=== PATIENT | male | born 1965 | race Caucasian/White ===

== ENCOUNTER 2018-02-07 01:58 | Emergency (ER) | payer BC ==
[~2018-02-07] VITALS: Ht 160 cm; Wt 111.1 kg
[~2018-02-07 01:58] MED LIST: AMOX500C2 PO
--- OUTSIDE RECORDS SUMMARY | 2018-02-07 02:04 | XMS REPORT ---
Author Author TATIANNA LA Organization [facility] Address [address] [place] [address] Care Team Providers Care Web Ui Software Engineer Name Role Phone TATIANNA LA Unavailable PROBLEMS Type Condition ICD9-CM Code [id number] Code Onset Dates Condition Status SNOMED Code Problem Essential hypertension I10 Active 64258885 Problem Pure hypercholesterolemia E78.00 Active 384588853 ALLERGIES No Known Allergies ENCOUNTERS Encounter Location Date Diagnosis [address] [address] Nov, Pure hypercholesterolemia E78.00 and Essential hypertension I10 [facility] [address] [address] Oct, Essential hypertension I10 [facility] [address] [address] Oct, Abdominal bloating R14.0 and Flatulence/gas pain/belching R14.0 [facility] [address] [place] [address] Oct, Essential hypertension I10 and Pure hypercholesterolemia E78.00 [facility] [address] [address] September, [facility] [address] [place] [address] Jul, Essential hypertension I10 [facility] [address] [address] May, Allergic contact dermatitis, unspecified trigger L23.9 [facility] [address] [address] May, Encounter for physical examination related to employment Z02.1 [facility] [address] [address] Nov, [facility] [address] [place] [id number] [place] [address] Nov, Hyperlipidemia, unspecified hyperlipidemia type E78.5 [facility] [address], [place] [address] Oct, Hyperlipidemia, unspecified hyperlipidemia type E78.5 [facility] [address] [address] Oct, [facility] [id number] [place] [address] Oct, Hyperlipidemia, unspecified hyperlipidemia type E78.5 [facility] [address], [place] [address] Aug, Gastroenteritis K52.9 [facility] [id number] [place] [address] May, Pure hypercholesterolemia E78.00 [facility] [address] [place] [address] May, Hyperlipidemia, unspecified hyperlipidemia type E78.5 [facility] [address], [place] [address] May, Routine adult health maintenance Z00.00 and Hyperlipidemia, unspecified hyperlipidemia type E78.5 [facility] [address], [place] [address] Jun, Hyperlipidemia, unspecified hyperlipidemia type E78.5 [facility] [address], [place] [address] May, Physical exam Z00.00 [facility] [address], [place] [address] May, Physical exam Z00.00 IMMUNIZATIONS No Known Immunizations SOCIAL HISTORY Never Assessed REASON FOR VISIT Blood Pressure-Dian MORRISON PLAN OF CARE Activity Details Follow Up 6 Months Reason: VITAL SIGNS Height 62.5 in 2017-10-29 Weight 159.2 lbs 2017-10-29 Temperature 98.4 degrees Fahrenheit 2017-10-29 Heart Rate 66 bpm 2017-10-29 Respiratory Rate 8 2017-10-29 BMI 28.65 kg/m2 2017-10-29 Blood pressure systolic 138 mmHg 2017-10-29 Blood pressure diastolic 86 mmHg 2017-10-29 MEDICATIONS Medication Instructions Dosage Frequency Start Date End Date Duration Status Pravastatin Sodium 20MG Orally Once a day 1 tablet 24h 90 Active Lisinopril 10 mg Orally Once a day 1 tablet 24h Jul, 30 day(s) Active Lejunior 3 1200 MG Orally Once a day 1 capsule 24h Active RESULTS No Results PROCEDURES No Known procedures INSTRUCTIONS MEDICATIONS ADMINISTERED No Known Medications MEDICAL (GENERAL) HISTORY Type Description Date Medical History hyperlipidemia Surgical History shoulder arthroscopy--Right 2001 Surgical History Eye Surgery
--- OUTSIDE RECORDS SUMMARY | 2018-02-07 02:04 | XMS REPORT ---
Author Author IGNA CRAWLEY Organization [facility] Address [address] [place] [address] Care Team Providers Care Production Checker Name Role Phone CRAWLEYMORGANGINA Unavailable PROBLEMS Type Condition ICD9-CM Code OQW44-RO Code Onset Dates Condition Status SNOMED Code Problem Essential hypertension I10 Active 86329336 Problem Pure hypercholesterolemia E78.00 Active 772348780 ALLERGIES No Known Allergies ENCOUNTERS Encounter Location Date Diagnosis [facility] [address] [address] Nov, Essential hypertension I10 and Pure hypercholesterolemia E78.00 [facility] [address] [address] Oct, Essential hypertension I10 [facility] [address] [address] Oct, Abdominal bloating R14.0 and Flatulence/gas pain/belching R14.0 [facility] [id number] [place] [address] Oct, Essential hypertension I10 and Pure hypercholesterolemia E78.00 [facility] [address] [address] September, [facility] [address] [address] Jul, Essential hypertension I10 [facility] [address] [address] May, Allergic contact dermatitis, unspecified trigger L23.9 [facility] [address] [address] May, Encounter for physical examination related to employment Z02.1 [facility] [address], [place] [address] Nov, [facility] [id number] [place] [address] Nov, Hyperlipidemia, unspecified hyperlipidemia type E78.5 [facility] [address], [place] [address] Oct, Hyperlipidemia, unspecified hyperlipidemia type E78.5 [facility] [address] [address] Oct, [facility] [id number] [place] [address] Oct, Hyperlipidemia, unspecified hyperlipidemia type E78.5 [facility] [address] [place] [address] Aug, Gastroenteritis K52.9 [facility] [id number] [place] [address] May, Pure hypercholesterolemia E78.00 [facility] [id number] [place] [address] May, Hyperlipidemia, unspecified hyperlipidemia type E78.5 [facility] [address], [place] [address] May, Routine adult health maintenance Z00.00 and Hyperlipidemia, unspecified hyperlipidemia type E78.5 [facility] [address], [place] [address] Jun, Hyperlipidemia, unspecified hyperlipidemia type E78.5 [facility] [address], [place] [address] May, Physical exam Z00.00 [facility] [address], [place] [address] May, Physical exam Z00.00 IMMUNIZATIONS No Known Immunizations SOCIAL HISTORY Never Assessed REASON FOR VISIT Abdominal pain Pt c/o abdominal pain, bloating, gas in chest and today nausea all started 2 days ago PRINCE Clay PLAN OF CARE Activity Details Follow Up prn Reason: VITAL SIGNS Height 62.5 in 2017-11-08 Weight 155.6 lbs 2017-11-08 Temperature 98.1 degrees Fahrenheit 2017-11-08 Heart Rate 76 bpm 2017-11-08 Respiratory Rate 18 2017-11-08 BMI 28.00 kg/m2 2017-11-08 Blood pressure systolic 132 mmHg 2017-11-08 Blood pressure diastolic 84 mmHg 2017-11-08 MEDICATIONS Medication Instructions Dosage Frequency Start Date End Date Duration Status [place] 3 1200 MG Orally Once a day 1 capsule 24h Active Pravastatin Sodium 20MG Orally Once a day 1 tablet 24h 90 Active Lisinopril 10 mg Orally Once a day 1 tablet 24h Jul, 30 day(s) Active RESULTS No Results PROCEDURES No Known procedures INSTRUCTIONS MEDICATIONS ADMINISTERED No Known Medications MEDICAL (GENERAL) HISTORY Type Description Date Medical History hyperlipidemia Surgical History shoulder arthroscopy--Right 2001 Surgical History Eye Surgery
--- OUTSIDE RECORDS SUMMARY | 2018-02-07 02:04 | XMS REPORT ---
Author Author TATIANNA LA [facility] Address [address] [place] [address] Care Team Providers Care Vp Publisher Development Name Role Phone TATIANNA LA Unavailable PROBLEMS Type Condition ICD9-CM Code [id number] Code Onset Dates Condition Status SNOMED Code Problem Essential hypertension I10 Active 80001260 Problem Pure hypercholesterolemia E78.00 Active 196903575 ALLERGIES No Information ENCOUNTERS Encounter Location Date Diagnosis [address] [address] Jul, Essential hypertension I10 [facility] [address] [address] May, Allergic contact dermatitis, unspecified trigger L23.9 [facility] [address] [place] [address] May, Encounter for physical examination related to employment Z02.1 [place] [address] [address] Nov, [facility] [address] [address] Nov, Hyperlipidemia, unspecified hyperlipidemia type E78.5 [facility] [id number] [place] [address] Oct, Hyperlipidemia, unspecified hyperlipidemia type E78.5 [facility] [address] [address] Oct, [facility] [address] [address] Oct, Hyperlipidemia, unspecified hyperlipidemia type E78.5 [facility] [address] [place] [address] Aug, Gastroenteritis K52.9 [place] [id number] [place] [address] May, Pure hypercholesterolemia E78.00 [place] [id number] [place] [address] May, Hyperlipidemia, unspecified hyperlipidemia type E78.5 [place] [id number] [place] [address] May, Routine adult health maintenance Z00.00 and Hyperlipidemia, unspecified hyperlipidemia type E78.5 [place] [id number] [place] [address] Jun, Hyperlipidemia, unspecified hyperlipidemia type E78.5 [place] [address] [place] [address] May, Physical exam Z00.00 [place] [address] [place] [address] May, Physical exam Z00.00 IMMUNIZATIONS No Known Immunizations SOCIAL HISTORY Never Assessed REASON FOR VISIT Refill request PLAN OF CARE VITAL SIGNS MEDICATIONS No Known Medications RESULTS No Results PROCEDURES No Known procedures INSTRUCTIONS MEDICATIONS ADMINISTERED No Known Medications MEDICAL (GENERAL) HISTORY Type Description Date Medical History hyperlipidemia Surgical History shoulder arthroscopy--Right 2001 Surgical History Eye Surgery
--- OUTSIDE RECORDS SUMMARY | 2018-02-07 02:04 | XMS REPORT ---
Author Author TATIANNA LA [facility] Address [address] [place] [address] Care Team Providers Care Ancient Art Curator Name Role Phone TATIANNA LA Unavailable PROBLEMS Type Condition ICD9-CM Code UGU39-WS Code Onset Dates Condition Status SNOMED Code Problem Pure hypercholesterolemia E78.00 Active 276407569 Problem Hyperlipidemia, unspecified hyperlipidemia type E78.5 Active 23345690 ALLERGIES Substance Reaction Event Type Date Status N.K.D.A. Unknown Non Drug Allergy May, Unknown SOCIAL HISTORY No smoking Hx information available PLAN OF CARE Activity Details Follow Up prn Reason: VITAL SIGNS Height 62.5 in 2016-06-02 Weight 152.5 lbs 2016-06-02 Temperature 98.3 degrees Fahrenheit 2016-06-02 Heart Rate 80 bpm 2016-06-02 Respiratory Rate 18 2016-06-02 BMI 27.45 kg/m2 2016-06-02 Blood pressure systolic 140 mmHg 2016-06-02 Blood pressure diastolic 82 mmHg 2016-06-02 MEDICATIONS Medication Instructions Dosage Frequency Start Date End Date Duration Status [place] 3 1200 MG Orally Once a day 1 capsule 24h Active RESULTS No Results PROCEDURES Procedure Date Ordered Related Diagnosis Body Site Office Visit, Est Pt., Level 3 Jun 02, 2016 IMMUNIZATIONS No Known Immunizations
--- OUTSIDE RECORDS SUMMARY | 2018-02-07 02:04 | XMS REPORT ---
Author Author YECENIA BRAXTON [facility] Address [address] [place] [address] Care Team Providers Care Gallery Or Museum Technician Name Role Phone YECENIA BRAXTON Unavailable PROBLEMS Type Condition ICD9-CM Code UAB01-CH Code Onset Dates Condition Status SNOMED Code Problem Essential hypertension I10 Active 05026059 Problem Pure hypercholesterolemia E78.00 Active 770791876 ALLERGIES No Known Allergies ENCOUNTERS Encounter Location Date Diagnosis [facility] [address] [address] Oct, Essential hypertension I10 [facility] [address] [address] Oct, Abdominal bloating R14.0 and Flatulence/gas pain/belching R14.0 [facility] [address] [address] 04 Oct, 2017 Essential hypertension I10 and Pure hypercholesterolemia E78.00 [facility] [address] [address] September, [facility] [address] [address] Jul, Essential hypertension I10 [facility] [address] [address] May, Allergic contact dermatitis, unspecified trigger L23.9 [facility] [address] [address] May, Encounter for physical examination related to employment Z02.1 [facility] [address] [address] Nov, [facility] [address] [address] Nov, Hyperlipidemia, unspecified hyperlipidemia type E78.5 [facility] [address] [address] Oct, Hyperlipidemia, unspecified hyperlipidemia type E78.5 [facility] [address] [address] Oct, [facility] [id number] [place] [address] Oct, Hyperlipidemia, unspecified hyperlipidemia type E78.5 [facility] [address] [place] [address] Aug, Gastroenteritis K52.9 [facility] [id number] [place] [address] May, Pure hypercholesterolemia E78.00 [facility] [address] [place] [address]- [address] May, Hyperlipidemia, unspecified hyperlipidemia type E78.5 [facility] [address] [address] May, Routine adult health maintenance Z00.00 and Hyperlipidemia, unspecified hyperlipidemia type E78.5 [facility] [address] [address] Jun, Hyperlipidemia, unspecified hyperlipidemia type E78.5 [facility] [address] [address] May, Physical exam Z00.00 [place] [address] [place] [address] May, Physical exam Z00.00 IMMUNIZATIONS No Known Immunizations SOCIAL HISTORY Never Assessed REASON FOR VISIT welts on arm/welts on rt arm yesterday that itched. Today the welts are on his lt arm and also [facility] Activity Details Follow Up prn Reason: VITAL SIGNS Height 62.5 in 2017-06-23 Weight 158.4 lbs 2017-06-23 Temperature 98.0 degrees Fahrenheit 2017-06-23 Heart Rate 86 bpm 2017-06-23 Respiratory Rate 20 2017-06-23 BMI 28.51 kg/m2 2017-06-23 Blood pressure systolic 160 mmHg 2017-06-23 Blood pressure diastolic 98 mmHg 2017-06-23 MEDICATIONS Medication Instructions Dosage Frequency Start Date End Date Duration Status [place] 3 1200 MG Orally Once a day 1 capsule 24h Active Pravastatin Sodium 20MG Orally Once a day 1 tablet 24h 90 Active RESULTS No Results PROCEDURES No Known procedures INSTRUCTIONS MEDICATIONS ADMINISTERED No Known Medications MEDICAL (GENERAL) HISTORY Type Description Date Medical History hyperlipidemia Surgical History shoulder arthroscopy--Right 2001 Surgical History Eye Surgery
--- OUTSIDE RECORDS SUMMARY | 2018-02-07 02:04 | XMS REPORT ---
Author Author TATIANNA LA Organization [facility] Address [address] [place] [address] Care Team Providers Care Print Buyer Name Role Phone TATIANNA LA Unavailable PROBLEMS Type Condition ICD9-CM Code TLF06-GK Code Onset Dates Condition Status SNOMED Code Problem Essential hypertension I10 Active 56416703 Problem Pure hypercholesterolemia E78.00 Active 339362933 ALLERGIES No Known Allergies ENCOUNTERS Encounter Location Date Diagnosis [address] [address] Nov, Essential hypertension I10 and Pure hypercholesterolemia E78.00 [facility] [address] [address] Oct, Essential hypertension I10 [facility] [address] [address] Oct, Abdominal bloating R14.0 and Flatulence/gas pain/belching R14.0 [facility] [address] [place] [address] Oct, Essential hypertension I10 and Pure hypercholesterolemia E78.00 [facility] [address] [address] September, [facility] [address] [place] [address] Jul, Essential hypertension I10 [facility] [address] [address] May, Allergic contact dermatitis, unspecified trigger L23.9 [facility] [address] [address] May, Encounter for physical examination related to employment Z02.1 [facility] [address], [place] [address] Nov, [facility] [id number] [place] [address] Nov, Hyperlipidemia, unspecified hyperlipidemia type E78.5 [facility] [address], [place] [address] Oct, Hyperlipidemia, unspecified hyperlipidemia type E78.5 [facility] [id number] [place] [address] Oct, [facility] [id number] [place] [address] Oct, Hyperlipidemia, unspecified hyperlipidemia type E78.5 [facility] [address], [place] [address] Aug, Gastroenteritis K52.9 [facility] [id number] [place] [address] May, Pure hypercholesterolemia E78.00 [facility] [address] [place] [address] May, Hyperlipidemia, unspecified hyperlipidemia type E78.5 [facility] [address], [place] [address] May, Routine adult health maintenance Z00.00 and Hyperlipidemia, unspecified hyperlipidemia type E78.5 [facility] [address], [place] [address] Jun, Hyperlipidemia, unspecified hyperlipidemia type E78.5 [facility] [address], [place] [address] May, Physical exam Z00.00 [facility] [address], [place] [address] May, Physical exam Z00.00 IMMUNIZATIONS No Known Immunizations SOCIAL HISTORY Never Assessed REASON FOR VISIT Establish Care, PT has a rash that is getting better and thinks it could possible be due to a new laundry soap-[place] PRINCE, PHQ2, AUDIT C PLAN OF CARE Activity Details Follow Up 3 Months Reason: VITAL SIGNS Height 62.5 in 2017-08-13 Weight 161.7 lbs 2017-08-13 Temperature 98.3 degrees Fahrenheit 2017-08-13 Heart Rate 78 bpm 2017-08-13 Respiratory Rate 20 2017-08-13 BMI 29.10 kg/m2 2017-08-13 Blood pressure systolic 148 mmHg 2017-08-13 Blood pressure diastolic 92 mmHg 2017-08-13 MEDICATIONS Medication Instructions Dosage Frequency Start Date End Date Duration Status Pravastatin Sodium 20MG Orally Once a day 1 tablet 24h 90 Active Lisinopril 10 mg Orally Once a day 1 tablet 24h Jul, 30 day(s) Active [place] 3 1200 MG Orally Once a day 1 capsule 24h Active RESULTS No Results PROCEDURES No Known procedures INSTRUCTIONS MEDICATIONS ADMINISTERED No Known Medications MEDICAL (GENERAL) HISTORY Type Description Date Medical History hyperlipidemia Surgical History shoulder arthroscopy--Right 2001 Surgical History Eye Surgery
--- OUTSIDE RECORDS SUMMARY | 2018-02-07 02:04 | XMS REPORT ---
Author Author TATIANNA LA Organization [facility] Address [address] [place] [address] Care Team Providers Care Tire Fixer Name Role Phone TATIANNA LA Unavailable PROBLEMS Type Condition ICD9-CM Code [id number] Code Onset Dates Condition Status SNOMED Code Problem Essential hypertension I10 Active 37871456 Problem Pure hypercholesterolemia E78.00 Active 311397223 ALLERGIES No Information ENCOUNTERS Encounter Location Date Diagnosis [address] [address] Nov, Essential hypertension I10 and Pure hypercholesterolemia E78.00 [place] [address] [address] Oct, Essential hypertension I10 [facility] [address] [address] Oct, Abdominal bloating R14.0 and Flatulence/gas pain/belching R14.0 [facility] [address] [place] [address] Oct, Essential hypertension I10 and Pure hypercholesterolemia E78.00 [facility] [address] [address] September, [facility] [address] [place] [address] Jul, Essential hypertension I10 [facility] [address] [address] May, Allergic contact dermatitis, unspecified trigger L23.9 [facility] [address] [address] May, Encounter for physical examination related to employment Z02.1 [facility] [address] [address] Nov, [facility] [address] [place] [id number] [place] [address] Nov, Hyperlipidemia, unspecified hyperlipidemia type E78.5 [facility] [address], [place] [address] Oct, Hyperlipidemia, unspecified hyperlipidemia type E78.5 [facility] [address], [place] [address] Oct, [facility] [address] [place] [address] Oct, Hyperlipidemia, unspecified hyperlipidemia type E78.5 [facility] [address], [place] [address] Aug, Gastroenteritis K52.9 [facility] [address] [place] [id number] [place] [address] May, Pure hypercholesterolemia E78.00 [facility] [address], [place] [address] May, Hyperlipidemia, unspecified hyperlipidemia type E78.5 [facility] [address], [place] [address] May, Routine adult health maintenance Z00.00 and Hyperlipidemia, unspecified hyperlipidemia type E78.5 [facility] [address], [place] [address] Jun, Hyperlipidemia, unspecified hyperlipidemia type E78.5 [facility] [address], [place] [address] May, Physical exam Z00.00 [facility] [address], [place] [address] May, Physical exam Z00.00 IMMUNIZATIONS No Known Immunizations SOCIAL HISTORY Never Assessed REASON FOR VISIT Blood pressure check, PT reports he just wanted to get his numbers since he has an appointment coming up. -Govind MORRISON PLAN OF CARE VITAL SIGNS Height 62.5 in 2017-10-11 Blood pressure systolic 130 mmHg 2017-10-11 Blood pressure diastolic 78 mmHg 2017-10-11 MEDICATIONS Medication Instructions Dosage Frequency Start Date End Date Duration Status Pravastatin Sodium 20MG Orally Once a day 1 tablet 24h 90 Active Lisinopril 10 mg Orally Once a day 1 tablet 24h Jul, 30 day(s) Active Melbourne 3 1200 MG Orally Once a day 1 capsule 24h Active RESULTS No Results PROCEDURES No Known procedures INSTRUCTIONS MEDICATIONS ADMINISTERED No Known Medications MEDICAL (GENERAL) HISTORY Type Description Date Medical History hyperlipidemia Surgical History shoulder arthroscopy--Right 2001 Surgical History Eye Surgery
--- OUTSIDE RECORDS SUMMARY | 2018-02-07 02:04 | XMS REPORT ---
Author Author TATIANNA LA Organization [facility] [place] Address [address] [place] [address] Care Team Providers Care Alum Mixer Name Role Phone TATIANNA LA Unavailable PROBLEMS Type Condition ICD9-CM Code [id number] Code Onset Dates Condition Status SNOMED Code Problem Essential hypertension I10 Active 65505731 Problem Pure hypercholesterolemia E78.00 Active 704200666 ALLERGIES No Information ENCOUNTERS Encounter Location Date Diagnosis [address] [address] Nov, Essential hypertension I10 and Pure hypercholesterolemia E78.00 [place] [address] [address] Oct, Essential hypertension I10 [facility] [address] [address] Oct, Abdominal bloating R14.0 and Flatulence/gas pain/belching R14.[address] [address] Oct, Essential hypertension I10 and Pure hypercholesterolemia E78.00 [facility] [place] [address] [address] September, [facility] [place] [address] [place] [address] Jul, Essential hypertension I10 [facility] [address] [address] May, Allergic contact dermatitis, unspecified trigger L23.9 [facility] [place] [address] [address] May, Encounter for physical examination related to employment Z02.1 [facility] [place] [address], [place] [address] Nov, [facility] [place] [address] [place] [id number] [place] [address] Nov, Hyperlipidemia, unspecified hyperlipidemia type E78.5 [facility] [place] [address], [place] [address] Oct, Hyperlipidemia, unspecified hyperlipidemia type E78.5 [facility] [place] [address], [place] [address] Oct, [facility] [place] [address] [place] [id number] [place] [address] Oct, Hyperlipidemia, unspecified hyperlipidemia type E78.5 [facility] [address], [place] [address] Aug, Gastroenteritis K52.9 [facility] [place] [address] [place] [id number] [place] [address] May, Pure hypercholesterolemia E78.00 [facility] [place] [address] [place] [address] May, Hyperlipidemia, unspecified hyperlipidemia type E78.5 [facility] [place] [address], [place] [address] May, Routine adult health maintenance Z00.00 and Hyperlipidemia, unspecified hyperlipidemia type E78.5 [facility] [place] [address], [place] [address] Jun, Hyperlipidemia, unspecified hyperlipidemia type E78.5 [facility] [place] [address], [place] [address] May, Physical exam Z00.00 [facility] [place] [address], [place] [address] May, Physical exam Z00.00 IMMUNIZATIONS No Known Immunizations SOCIAL HISTORY Never Assessed REASON FOR VISIT PLAN OF CARE VITAL SIGNS MEDICATIONS Medication Instructions Dosage Frequency Start Date End Date Duration Status Lisinopril 10 mg Orally Once a day 1 tablet 24h Jul, Active RESULTS No Results PROCEDURES No Known procedures INSTRUCTIONS MEDICATIONS ADMINISTERED No Known Medications MEDICAL (GENERAL) HISTORY Type Description Date Medical History hyperlipidemia Surgical History shoulder arthroscopy--Right 2002 Surgical History Eye Surgery
--- OUTSIDE RECORDS SUMMARY | 2018-02-07 02:04 | XMS REPORT ---
Author Author DANIE YANG Organization [employer] Address Unknown Phone Unavailable Care Team Providers Care Fuel Cell Designer Name Role Phone DANIE YANG CP Unavailable Allergies No Known Allergies Problems Problem Type Condition Code Onset Dates Condition Status Assessment Physical exam Z00.00 Active Medications No Known Medications Procedures Procedure Coding System Code Date COMPLETE CBC W/AUTO DIFF WBC CPT-4 98610 Jun 25, 2015 LIPID PANEL CPT-4 11309 Jun 25, 2015 ASSAY THYROID STIM HORMONE CPT-4 49333 Jun 25, 2015 VENIPUNCT, ROUTINE* CPT-4 39780 Jun 25, 2015 Results Name Result Date Reference Range Unit Abnormality Flag ROUTINE VENIPUNCTURE Summary Purpose [employer] Submission
--- OUTSIDE RECORDS SUMMARY | 2018-02-07 02:04 | XMS REPORT ---
Author Author TATIANNA LA [facility] Address [address] [place] [address] Care Team Providers Care Cancer Program Director Name Role Phone TATIANNA LA Unavailable PROBLEMS Type Condition ICD9-CM Code [id number] Code Onset Dates Condition Status SNOMED Code Problem Essential hypertension I10 Active 92640042 Problem Pure hypercholesterolemia E78.00 Active 407355381 ALLERGIES No Information ENCOUNTERS Encounter Location Date Diagnosis [address] [address] Jul, Essential hypertension I10 [facility] [address] [address] May, Allergic contact dermatitis, unspecified trigger L23.9 [facility] [address] [place] [address] May, Encounter for physical examination related to employment Z02.1 [place] [address] [address] Nov, [facility] [address] [address] Nov, Hyperlipidemia, unspecified hyperlipidemia type E78.5 [facility] [address] [place] [id number] [place] [address] Oct, Hyperlipidemia, unspecified hyperlipidemia type E78.5 [facility] [address] [address] Oct, [facility] [address] [address] Oct, Hyperlipidemia, unspecified hyperlipidemia type E78.5 [facility] [address] [place] [address] Aug, Gastroenteritis K52.9 [place] [address] [place] [address] May, Pure hypercholesterolemia E78.00 [place] [address] [place] [address] May, Hyperlipidemia, unspecified hyperlipidemia type E78.5 [place] [address] [place] [id number] [place] [address] May, Routine adult health maintenance Z00.00 and Hyperlipidemia, unspecified hyperlipidemia type E78.5 [place] [address] [place] [id number] [place] [address] Jun, Hyperlipidemia, unspecified hyperlipidemia type E78.5 [place] [address] [address] May, Physical exam Z00.00 [place] [address] [address] May, Physical exam Z00.00 IMMUNIZATIONS No Known Immunizations SOCIAL HISTORY Never Assessed REASON FOR VISIT Refill request PLAN OF CARE VITAL SIGNS MEDICATIONS Medication Instructions Dosage Frequency Start Date End Date Duration Status Pravastatin Sodium 20 mg Orally Once a day 1 tablet 24h 90 days Active RESULTS No Results PROCEDURES No Known procedures INSTRUCTIONS MEDICATIONS ADMINISTERED No Known Medications MEDICAL (GENERAL) HISTORY Type Description Date Medical History hyperlipidemia Surgical History shoulder arthroscopy--Right 2001 Surgical History Eye Surgery
--- OUTSIDE RECORDS SUMMARY | 2018-02-07 02:04 | XMS REPORT ---
Author Author TATIANNA LA Organization [facility] Address [address] [place] [address] Care Team Providers Care Riding Double Name Role Phone TATIANNA LA Unavailable PROBLEMS Type Condition ICD9-CM Code [id number] Code Onset Dates Condition Status SNOMED Code Problem Essential hypertension I10 Active 47092326 Problem Pure hypercholesterolemia E78.00 Active 807504121 ALLERGIES No Information ENCOUNTERS Encounter Location Date Diagnosis [address] [address] Nov, Pure hypercholesterolemia E78.00 and Essential hypertension I10 [facility] [address] [address] Oct, Essential hypertension I10 [facility] [address] [address] Oct, Abdominal bloating R14.0 and Flatulence/gas pain/belching R14.0 [facility] [address] [place] [address] Oct, Essential hypertension I10 and Pure hypercholesterolemia E78.00 [facility] [address] [address] September, [facility] [address] [place] [address] Jul, Essential hypertension I10 [facility] [address] [address] May, Allergic contact dermatitis, unspecified trigger L23.9 [facility] [address] [address] May, Encounter for physical examination related to employment Z02.1 [facility] [address], [place] [address] Nov, [facility] [address] [place] [id number] [place] [address] Nov, Hyperlipidemia, unspecified hyperlipidemia type E78.5 [facility] [address], [place] [address] Oct, Hyperlipidemia, unspecified hyperlipidemia type E78.5 [facility] [address], [place] [address] Oct, [facility] [address] [place] [id number] [place] [address] Oct, Hyperlipidemia, unspecified hyperlipidemia type E78.5 [facility] [address], [place] [address] Aug, Gastroenteritis K52.9 [facility] [address] [place] [id number] [place] [address] May, Pure hypercholesterolemia E78.00 [facility] [address] [place] [address] May, Hyperlipidemia, unspecified hyperlipidemia type E78.5 [facility] [address], [place] [address] May, Routine adult health maintenance Z00.00 and Hyperlipidemia, unspecified hyperlipidemia type E78.5 [facility] [address], [place] [address] Jun, Hyperlipidemia, unspecified hyperlipidemia type E78.5 [facility] [address], [place] [address] May, Physical exam Z00.00 [facility] [address], [place] [address] May, Physical exam Z00.00 IMMUNIZATIONS No Known Immunizations SOCIAL HISTORY Never Assessed REASON FOR VISIT Lab (walk-in) PLAN OF CARE VITAL SIGNS MEDICATIONS Unknown Medications RESULTS No Results PROCEDURES Procedure Date Ordered Result Body Site LIPID PANEL December 14, 2017 COMPREHEN METABOLIC PANEL December 14, 2017 VENIPUNCT, ROUTINE* December 14, 2017 INSTRUCTIONS MEDICATIONS ADMINISTERED No Known Medications MEDICAL (GENERAL) HISTORY Type Description Date Medical History hyperlipidemia Surgical History shoulder arthroscopy--Right 2002 Surgical History Eye Surgery
--- OUTSIDE RECORDS SUMMARY | 2018-02-07 02:04 | XMS REPORT ---
Author Author TATIANNA LA [facility] Address [address] [place] [address] Care Team Providers Care Railroad Yard Worker Name Role Phone TATIANNA LA Unavailable PROBLEMS Type Condition ICD9-CM Code [id number] Code Onset Dates Condition Status SNOMED Code Problem Pure hypercholesterolemia E78.00 Active 189532092 Problem Hyperlipidemia, unspecified hyperlipidemia type E78.5 Active 72692082 ALLERGIES Unknown Allergies SOCIAL HISTORY No smoking Hx information available PLAN OF CARE VITAL SIGNS MEDICATIONS Medication Instructions Dosage Frequency Start Date End Date Duration Status Pravastatin Sodium 20 mg Orally Once a day 1 tablet 24h May, 30 day(s) Active RESULTS No Results PROCEDURES No Known procedures IMMUNIZATIONS No Known Immunizations
--- OUTSIDE RECORDS SUMMARY | 2018-02-07 02:05 | XMS REPORT ---
Author Author TATIANNA LA [facility] Address [address] [place] [address] Care Team Providers Care Associate Professor Of Biblical Studies Name Role Phone TATIANNA LA Unavailable PROBLEMS Type Condition ICD9-CM Code [id number] Code Onset Dates Condition Status SNOMED Code Problem Pure hypercholesterolemia E78.00 Active 665646181 Problem Hyperlipidemia, unspecified hyperlipidemia type E78.5 Active 29720107 ALLERGIES No Information ENCOUNTERS Encounter Location Date Diagnosis [facility] [address] [address] Jul, [facility] [address] [address] May, Allergic contact dermatitis, unspecified trigger L23.9 [facility] [address] [address] May, Encounter for physical examination related to employment Z02.1 [facility] [address] [address] Nov, [facility] [address] [address] Nov, Hyperlipidemia, unspecified hyperlipidemia type E78.5 [facility] [address] [place] [id number] [place] [address] Oct, Hyperlipidemia, unspecified hyperlipidemia type E78.5 [facility] [address] [address] Oct, [facility] [address] [address] Oct, Hyperlipidemia, unspecified hyperlipidemia type E78.5 [facility] [address] [place] [address] Aug, Gastroenteritis K52.9 [place] [address] [place] [address] May, Pure hypercholesterolemia E78.00 [place] [address] [place] [address] May, Hyperlipidemia, unspecified hyperlipidemia type E78.5 [place] [address] [place] [id number] [place] [address] May, Routine adult health maintenance Z00.00 and Hyperlipidemia, unspecified hyperlipidemia type E78.5 [place] [address] [place] [id number] [place] [address] Jun, Hyperlipidemia, unspecified hyperlipidemia type E78.5 [place] [address] [address] May, Physical exam Z00.00 [place] [address] [place] [id number] [place] [address] May, Physical exam Z00.00 IMMUNIZATIONS No Known Immunizations SOCIAL HISTORY Never Assessed REASON FOR VISIT Lab (walk-in) PLAN OF CARE VITAL SIGNS MEDICATIONS Unknown Medications RESULTS Name Result Date Reference Range LIPID PANEL 2016 Cholesterol, Total 158 100-199 Triglycerides 100 0-149 HDL Cholesterol 43 >39 VLDL Cholesterol Marco Antonio 20 5-40 LDL Cholesterol Calc 95 0-99 Comment: PROCEDURES Procedure Date Ordered Result Body Site LIPID PANEL 2016 VENIPKLEVER, ROUTINE* 2016 INSTRUCTIONS MEDICATIONS ADMINISTERED No Known Medications MEDICAL (GENERAL) HISTORY Type Description Date Medical History hyperlipidemia Surgical History shoulder arthroscopy--Right 2001 Surgical History Eye Surgery
--- OUTSIDE RECORDS SUMMARY | 2018-02-07 02:05 | XMS REPORT ---
Author Author DANIE YANG Organization [employer] Address Unknown Phone Unavailable Care Team Providers Care Heat Treat Furnace Operator Name Role Phone DANIE YANG CP Unavailable Allergies No Known Allergies Problems Problem Type Condition Code Onset Dates Condition Status Assessment Hyperlipidemia, unspecified hyperlipidemia type E78.5 Active Problem Hyperlipidemia, unspecified hyperlipidemia type E78.5 Active Medications Medication Code System Code Instructions Start Date End Date Status Dosage Fish Oil [facility] [address]-57 1000 MG Orally 2 times a day Jun 28, 2015 September 26, 2015 1 capsule Results No Known Results Summary Purpose [employer] Submission
--- OUTSIDE RECORDS SUMMARY | 2018-02-07 02:05 | XMS REPORT | Continuity of Care Document ---
Author Author [facility] Organization [facility] Address Unknown Phone Unavailable Allergies There is no data. Medications There is no data. Problems Date Dx Coded Attending Type Code Diagnosis Diagnosed By 09/02/2013 JIHAN HANNA, VINNY Kothari Ot 401.9 HYPERTENSION NOS 09/02/2013 VINNY BOBO MD Ot 521.00 UNSPEC DENTAL CARIES 09/02/2013 VINNY BOBO MD Ot 525.9 DENTAL DISORDER NOS Procedures There is no data. Results Test Result Range Lipid Panel - 06/23/16 10:32 Cholesterol, Total 224 mg/dL 100-199 Triglycerides 135 mg/dL 0-149 HDL Cholesterol 37 mg/dL >39 VLDL Cholesterol Marco Antonio 27 mg/dL 5-40 LDL Cholesterol Calc 160 mg/dL 0-99 Lipid Panel - 11/02/16 12:40 Cholesterol, Total 158 mg/dL 100-199 Triglycerides 100 mg/dL 0-149 HDL Cholesterol 43 mg/dL >39 VLDL Cholesterol Marco Antonio 20 mg/dL 5-40 LDL Cholesterol Calc 95 mg/dL 0-99 LIPID PANEL - 12/14/17 11:24 CHOLESTEROL, TOTAL 194 mg/dL <200 HDL CHOLESTEROL 36 mg/dL >40 TRIGLYCERIDES 173 mg/dL <150 LDL-CHOLESTEROL 129 mg/dL (calc) NRG CHOL/HDLC RATIO 5.4 (calc) <5.0 NON HDL CHOLESTEROL 158 mg/dL (calc) <130 CMP - 12/14/17 11:24 GLUCOSE 127 mg/dL 65-99 UREA NITROGEN (BUN) 14 mg/dL 7-25 CREATININE 0.89 mg/dL 0.70-1.33 eGFR NON-AFR. MICRONESIAN 100 mL/min/1.73m2 > OR=60 eGFR 116 mL/min/1.73m2 > OR=60 BUN/CREATININE RATIO NOT APPLICABLE (calc) 6-22 SODIUM 138 mmol/L 135-146 POTASSIUM 4.1 mmol/L 3.5-5.3 CHLORIDE 106 mmol/L 98-110 CARBON DIOXIDE 26 mmol/L 20-31 CALCIUM 8.9 mg/dL 8.6-10.3 PROTEIN, TOTAL 6.3 g/dL 6.1-8.1 ALBUMIN 4.3 g/dL 3.6-5.1 GLOBULIN 2.0 g/dL (calc) 1.9-3.7 ALBUMIN/GLOBULIN RATIO 2.2 (calc) 1.0-2.5 BILIRUBIN, TOTAL 0.7 mg/dL 0.2-1.2 ALKALINE PHOSPHATASE 49 U/L 40-115 AST 21 U/L 10-35 ALT 26 U/L 9-46 Encounters ACCT No. Visit Date/Time Discharge Status Pt. Type Provider Facility Loc./Unit Complaint [id number] 09/02/2013 04:39:00 09/02/2013 05:14:00 DIS Emergency JIHAN HANNA, VINNY Kothari [facility] ER DENTAL PAIN [id number] 02/07/2018 02:00:00 ACT Emergency FELIBERTO SAMANTHA SEALS [facility] ER RASH [id number] 06/24/2016 08:36:00 Document Registration [id number] 11/03/2016 08:06:00 Document Registration [id number] 12/14/2017 12:00:00 12/14/2017 23:59:59 [facility] Outpatient ABHINAV HANNA, TATIANNA FRANKLINCris [facility] [id number] 12/14/2017 12:00:00 Document Registration
--- OUTSIDE RECORDS SUMMARY | 2018-02-07 02:05 | XMS REPORT ---
Author Author TATIANNA LA [facility] [address] Address [address] [place] [address] Care Team Providers Care Woods Laborer Name Role Phone TATIANNA LA Unavailable PROBLEMS Type Condition ICD9-CM Code [id number] Code Onset Dates Condition Status SNOMED Code Problem Essential hypertension I10 Active 00267289 Problem Pure hypercholesterolemia E78.00 Active 267327695 ALLERGIES No Known Allergies ENCOUNTERS Encounter Location Date Diagnosis [facility] [address] [address] Oct, Essential hypertension I10 [facility] [address] [address] Oct, Abdominal bloating R14.0 and Flatulence/gas pain/belching R14.0 [facility] [address] [address] Oct, Essential hypertension I10 and Pure hypercholesterolemia E78.00 [facility] [address] [address] September, [facility] [address] [address] Jul, Essential hypertension I10 [facility] [address] [address] May, Allergic contact dermatitis, unspecified trigger L23.9 [facility] [address] [address] May, Encounter for physical examination related to employment Z02.1 [facility] [address] [address] Nov, [facility] [id number] [address] Nov, Hyperlipidemia, unspecified hyperlipidemia type E78.5 [facility] [id number] [place] [address] Oct, Hyperlipidemia, unspecified hyperlipidemia type E78.5 [facility] [address] [address] Oct, [facility] [id number] [place] [address] Oct, Hyperlipidemia, unspecified hyperlipidemia type E78.5 [facility] [id number] [place] [address] Aug, Gastroenteritis K52.9 [facility] [id number] [place] [address] May, Pure hypercholesterolemia E78.00 [facility] [id number] [place] [address] May, Hyperlipidemia, unspecified hyperlipidemia type E78.5 [facility] [id number] [place] [address] May, Routine adult health maintenance Z00.00 and Hyperlipidemia, unspecified hyperlipidemia type E78.5 [facility] [address], [place] [address] Jun, Hyperlipidemia, unspecified hyperlipidemia type E78.5 [facility] [id number] [place] [address] May, Physical exam Z00.00 [facility] [id number] [place] [address] May, Physical exam Z00.00 IMMUNIZATIONS No Known Immunizations SOCIAL HISTORY Never Assessed REASON FOR VISIT Physical---DBennettRN PLAN OF CARE Activity Details Follow Up prn Reason: VITAL SIGNS Height 62.5 in 2017-06-12 Weight 157 lbs 2017-06-12 Temperature 98.0 degrees Fahrenheit 2017-06-12 Heart Rate 80 bpm 2017-06-12 Respiratory Rate 20 2017-06-12 BMI 28.25 kg/m2 2017-06-12 Blood pressure systolic 130 mmHg 2017-06-12 Blood pressure diastolic 70 mmHg 2017-06-12 MEDICATIONS Medication Instructions Dosage Frequency Start Date End Date Duration Status Pravastatin Sodium 20MG Orally Once a day 1 tablet 24h 90 Active [place] 3 1200 MG Orally Once a day 1 capsule 24h Active RESULTS No Results PROCEDURES No Known procedures INSTRUCTIONS MEDICATIONS ADMINISTERED No Known Medications MEDICAL (GENERAL) HISTORY Type Description Date Medical History hyperlipidemia Surgical History shoulder arthroscopy--Right 2001 Surgical History Eye Surgery
--- OUTSIDE RECORDS SUMMARY | 2018-02-07 02:05 | XMS REPORT ---
Author Author TATIANNA LA [facility] Address [address] [place] [address] Care Team Providers Care Portfolio Analyst Name Role Phone TATIANNA LA Unavailable PROBLEMS Type Condition ICD9-CM Code [id number] Code Onset Dates Condition Status SNOMED Code Problem Pure hypercholesterolemia E78.00 Active 522395150 Problem Hyperlipidemia, unspecified hyperlipidemia type E78.5 Active 70936009 ALLERGIES Unknown Allergies SOCIAL HISTORY No smoking Hx information available PLAN OF CARE VITAL SIGNS MEDICATIONS Unknown Medications RESULTS Name Result Date Reference Range LIPID PANEL 2016-06-23 Cholesterol, Total 224 100-199 Triglycerides 135 0-149 HDL Cholesterol 37 >39 VLDL Cholesterol Marco Antonio 27 5-40 LDL Cholesterol Calc 160 0-99 Comment: PROCEDURES Procedure Date Ordered Related Diagnosis Body Site LIPID PANEL Jun 23, 2016 VENIPUNCT, ROUTINE* Jun 23, 2016 IMMUNIZATIONS No Known Immunizations
--- OUTSIDE RECORDS SUMMARY | 2018-02-07 02:05 | XMS REPORT ---
Author Author TATIANNA LA [facility] Address [address] [place] [address] Care Team Providers Care Morning Show Newscast Producer Name Role Phone TATIANNA LA Unavailable PROBLEMS Type Condition ICD9-CM Code [id number] Code Onset Dates Condition Status SNOMED Code Problem Pure hypercholesterolemia E78.00 Active 488883705 Problem Hyperlipidemia, unspecified hyperlipidemia type E78.5 Active 65413766 ALLERGIES No Information ENCOUNTERS Encounter Location Date Diagnosis [facility] [address] [address] Jul, [facility] [address] [address] May, Allergic contact dermatitis, unspecified trigger L23.9 [facility] [address] [address] May, Encounter for physical examination related to employment Z02.1 [facility] [address] [address] Nov, [facility] [address] [address] Nov, Hyperlipidemia, unspecified hyperlipidemia type E78.5 [facility] [id number] [place] [address] Oct, Hyperlipidemia, unspecified hyperlipidemia type E78.5 [facility] [address] [address] Oct, [facility] [address] [address] Oct, Hyperlipidemia, unspecified hyperlipidemia type E78.5 [facility] [address] [place] [address] Aug, Gastroenteritis K52.9 [facility] [id number] [place] [address] May, Pure hypercholesterolemia E78.00 [facility] [id number] [place] [address] May, Hyperlipidemia, unspecified hyperlipidemia type E78.5 [facility] [id number] [place] [address] May, Routine adult health maintenance Z00.00 and Hyperlipidemia, unspecified hyperlipidemia type E78.5 [facility] [id number] [place] [address] Jun, Hyperlipidemia, unspecified hyperlipidemia type E78.5 [facility] [address] [address] May, Physical exam Z00.00 [place] [address] [place] [address] May, Physical exam Z00.00 IMMUNIZATIONS No Known Immunizations SOCIAL HISTORY Never Assessed REASON FOR VISIT Medication Refill PLAN OF CARE VITAL SIGNS MEDICATIONS Medication Instructions Dosage Frequency Start Date End Date Duration Status Pravastatin Sodium 20 mg Orally Once a day 1 tablet 24h 30 Active RESULTS No Results PROCEDURES No Known procedures INSTRUCTIONS MEDICATIONS ADMINISTERED No Known Medications MEDICAL (GENERAL) HISTORY Type Description Date Medical History hyperlipidemia Surgical History shoulder arthroscopy--Right 2001 Surgical History Eye Surgery
--- NOTE | 2018-02-07 02:38 | ED General ---
General Stated Complaint: RASH Source of Information: Patient (SOMEWHAT VAGUE HISTORIAN) History of Present Illness Date Seen by Provider: Feb 07, 2018 Time Seen by Provider: 02:10 Initial Comments PT ARRIVES VIA POV FROM HOME PT STATES "I FEEL A LITTLE WEIRD" PT STATES "WHEN I LAID DOWN, FELT LIKE I WAS HAVING AN ANXIETY ATTACK, GOT UP AND WALK AROUND AND I'M FINE, THEN I LAY DOWN AND IT STARTS ALL OVER AGAIN" PT STATES "MY ALLERGIES REALLY KICKED IN THIS MORNING" STATES HE TOOK LORATIDINE 10 MG THIS MORNING, THEN CETIRIZINE 10 MG AT 1700, THEN TOOK 200 MG DIPHENHYDRAMINE AT 2130 STATES HE WENT TO BED AT 2130 AND FELT FINE STATES "WOKE UP AT 1 AND MY THROAT WAS DRY AND MY MOUTH WAS DRY" APPARENTLY OTHER SYMPTOMS BEGAN SOMETIME AFTER HE WOKE UP PT IS NOT HAVING ANY SYMPTOMS NOW NO FEVER NO COUGH NO CHEST PAIN NO NAUSEA/VOMITING NO SWELLING IN LEGS/FEET OR PAIN IN CALVES NO PALPITATIONS NO SYNCOPE NO DIZZINESS Allergies and Home Medications Allergies Coded Allergies: No Known Drug Allergies (Unverified , 09/02/13) Home Medications Amoxicillin 500 Mg Capsule, 2 EACH PO BID Prescribed by: VINNY LOPEZ on 09/02/13 0508 Patient Home Medication List Home Medication List Reviewed: Yes Review of Systems Review of Systems Constitutional: see HPI EENTM: no symptoms reported Respiratory: see HPI Cardiovascular: no symptoms reported; No chest pain, No edema, No palpitations , No syncope, No vascular heart diseas Gastrointestinal: no symptoms reported Genitourinary: no symptoms reported Musculoskeletal: no symptoms reported Skin: no symptoms reported Psychiatric/Neurological: See HPI, Anxiety Hematologic/Lymphatic: No Symptoms Reported Immunological/Allergic: no symptoms reported Past Hiefspz-Xghdtg-Hgbdkr Hx Patient Social History Alcohol Use: Regular Use ("COUPLE OF DRINKS A DAY" EVERY DAY) Recreational Drug Use: Yes (THC IN HIGH SCHOOL) Smoking Status: Former Smoker (<1/2 PPD, QUIT 6-7 YEARS AGO, PER PT ON 02/07/18 ) Type Used: Cigarettes Recent Foreign Travel: No Contact w/Someone Who Travel: No Seasonal Allergies Seasonal Allergies: Yes Past Medical History Surgeries: Yes (LEFT EYE REMOVED WITH PROSTHESIS) Eye Surgery Respiratory: No Cardiac: Yes High Cholesterol, Hypertension Neurological: No Genitourinary: No Gastrointestinal: No Musculoskeletal: No Endocrine: No 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 oz. 63.993064fl; BMI Method: General Appearance: No Apparent Distress, WD/WN HEENT: Normal ENT Inspection, Other (LEFT PROSTHETIC EYE) Neck: Full Range of Motion, Normal Inspection, Non Tender, Supple; No Carotid Bruit, No JVD Respiratory: Normal Breath Sounds, No Accessory Muscle Use, No Respiratory Distress Cardiovascular: Regular Rate, Rhythm, No Edema, No JVD, No Murmur, Normal Peripheral Pulses Gastrointestinal: Normal Bowel Sounds, No Organomegaly, No Pulsatile Mass, Non Tender, Soft Back: Normal Inspection Extremity: Normal Capillary Refill, Normal Inspection, Normal Range of Motion, Non Tender, No Calf Tenderness, No Pedal Edema Neurologic/Psychiatric: Alert, Oriented x3, No Motor/Sensory Deficits, Normal Mood/Affect, mortgage loan reviewer II-XII Norm as Tested Skin: Normal Color, Warm/Dry Progress/Results/Core Measures Suspected Sepsis SIRS Temperature: Pulse: Respiratory Rate: Laboratory Tests 02/07/18 02:34: White Blood Count 11.1H Blood Pressure / Mean: Laboratory Tests 02/07/18 02:34: Creatinine 0.86, INR Comment 0.9, Platelet Count 229, Total Bilirubin 0.6 Results/Orders Lab Results Laboratory Tests Test 02/07/18 02:30 02/07/18 02:34 Range/Units Urine Color YELLOW Urine Clarity CLEAR Urine pH 6 5-9 Urine Specific [place] 1.015 L 1.016-1.022 Urine Protein 1+ H NEGATIVE Urine Glucose (UA) NEGATIVE NEGATIVE Urine Ketones NEGATIVE NEGATIVE Urine Nitrite NEGATIVE NEGATIVE Urine Bilirubin NEGATIVE NEGATIVE Urine Urobilinogen NORMAL NORMAL MG/DL Urine Leukocyte Esterase NEGATIVE NEGATIVE Urine RBC (Auto) NEGATIVE NEGATIVE Urine RBC NONE /HPF Urine WBC NONE /HPF Urine Squamous Epithelial Cells RARE /HPF Urine Crystals NONE /LPF Urine Bacteria NEGATIVE /HPF Urine Casts NONE /LPF Urine Mucus SMALL H /LPF Urine Culture Indicated NO Urine Opiates Screen NEGATIVE NEGATIVE Urine Oxycodone Screen NEGATIVE NEGATIVE Urine Methadone Screen NEGATIVE NEGATIVE Urine Propoxyphene Screen NEGATIVE NEGATIVE Urine Barbiturates Screen NEGATIVE NEGATIVE Ur Tricyclic Antidepressants Screen NEGATIVE NEGATIVE Urine Phencyclidine Screen NEGATIVE NEGATIVE Urine Amphetamines Screen NEGATIVE NEGATIVE Urine Methamphetamines Screen NEGATIVE NEGATIVE Urine Benzodiazepines Screen NEGATIVE NEGATIVE Urine Cocaine Screen NEGATIVE NEGATIVE Urine Cannabinoids Screen NEGATIVE NEGATIVE White Blood Count 11.1 H 4.3-11.0 10^3/uL Red Blood Count 4.86 4.35-5.85 10^6/uL Hemoglobin 15.4 13.3-17.7 G/DL Hematocrit 44 40-54 % Mean Corpuscular Volume 90 80-99 FL Mean Corpuscular Hemoglobin 32 25-34 PG Mean Corpuscular Hemoglobin Concent 35 32-36 G/DL Red Cell Distribution Width 12.3 10.0-14.5 % Platelet Count 229 130-400 10^3/uL Mean Platelet Volume 10.2 7.4-10.4 FL Neutrophils (%) (Auto) 75 42-75 % Lymphocytes (%) (Auto) 14 12-44 % Monocytes (%) (Auto) 9 0-12 % Eosinophils (%) (Auto) 3 0-10 % Basophils (%) (Auto) 0 0-10 % Neutrophils # (Auto) 8.3 H 1.8-7.8 X 10^3 Lymphocytes # (Auto) 1.5 1.0-4.0 X 10^3 Monocytes # (Auto) 1.0 0.0-1.0 X 10^3 Eosinophils # (Auto) 0.3 0.0-0.3 10^3/uL Basophils # (Auto) 0.0 0.0-0.1 10^3/uL Prothrombin Time 12.2 12.2-14.7 SEC INR Comment 0.9 0.8-1.4 Activated Partial Thromboplast Time 27 24-35 SEC Sodium Level 137 135-145 MMOL/L Potassium Level 3.7 3.6-5.0 MMOL/L Chloride Level 103 98-107 MMOL/L Carbon Dioxide Level 19 L 21-32 MMOL/L Anion Gap 15 H 5-14 MMOL/L Blood Urea Nitrogen 15 7-18 MG/DL Creatinine 0.86 0.60-1.30 MG/DL Estimat Glomerular Filtration Rate > 60 BUN/Creatinine Ratio 17 Glucose Level 91 70-105 MG/DL Calcium Level 9.2 8.5-10.1 MG/DL Corrected Calcium 8.8 8.5-10.1 MG/DL Magnesium Level 2.6 H 1.8-2.4 MG/DL Total Bilirubin 0.6 0.1-1.0 MG/DL Aspartate Amino Transf (AST/SGOT) 25 5-34 U/L Alanine Aminotransferase (ALT/SGPT) 35 0-55 U/L Alkaline Phosphatase 56 40-136 U/L Troponin I < 0.30 <0.30 NG/ML Total Protein 6.8 6.4-8.2 GM/DL Albumin 4.5 3.2-4.5 GM/DL TSH [place] Testing 2.14 0.35-4.94 UIU/ML Serum Alcohol < 10 <10 MG/DL My Orders Orders - SAMANTHA DAO DO Saline Lock/Iv-Start (02/07/18 02:26) Ekg Tracing (02/07/18 02:26) Monitor-Rhythm Ecg Trace Only (02/07/18 02:26) Alcohol (02/07/18 02:26) Cbc With Automated Diff (02/07/18 02:26) Comprehensive Metabolic Panel (02/07/18 02:26) Drug Screen Stat (Urine) (02/07/18 02:26) Magnesium (02/07/18 02:26) Protime With Inr (02/07/18 02:26) Partial Thromboplastin Time (02/07/18 02:26) Thyroid Analyzer (02/07/18 02:26) Troponin I (02/07/18 02:26) Ua Culture If Indicated (02/07/18 02:26) Chest Pa/Lat (2 View) (02/07/18 02:26) Rx-Ondansetron Po (Rx-Zofran Po) (02/07/18 04:11) Acetaminophen Tablet (Tylenol Tablet) (02/07/18 04:15) Vital Signs/I&O 02/07/18 02/07/18 02:13 04:51 Temp 97.2 97.9 Pulse 83 77 Resp 21 26 B/P (MAP) 150/96 (114) 139/77 Pulse Ox 97 O2 Delivery Room Air Room Air Capillary Refill : Progress Note : Progress Note ASYMPTOMATIC DURING ER STAY PT ABLE TO LAY FLAT WITHOUT DIFFICULTY NO DYSPNEA OR LOW O2 SATS AT ANY TIME DURING ER STAY ECG Initial ECG Impression Date: Feb 07, 2018 Initial ECG Impression Time: 03:10 Initial ECG Rate: 71 Initial ECG Rhythm: Normal Sinus Initial ECG Impression: Normal Initial ECG Comparisson: No Previous ECG Available Diagnostic Imaging Comments CXR--NO ACUTE PROCESS, PENDING RADIOLOGIST REVIEW Reviewed: Reviewed by Me Departure Impression Primary Impression: Anxiety Additional Impression: EXCESSIVE USE OF ANTIHISTAMINES Disposition: 01 HOME, SELF-CARE Condition: Improved Departure-Patient Inst. Referrals: TATIANNA LA MD (PCP) Primary Care Physician [facility] (Family) Primary Care Physician Patient Instructions: Adverse Drug Reactions, Adult (DC), Anxiety, Adult (DC) Add. Discharge Instructions: TAKE ONLY LORATADINE 10 MG IN MORNING FOR ALLERGIES, AND NO OTHER ANTIHISTAMINES NO DECONGESTANTS USE FLONSE OR NASACORT NASAL SPRAY DAILY FOR ALLERGIES LOTS OF CLEAR LIQUIDS FOLLOW UP WITH YOUR DR TOMORROW IF NO BETTER RETURN TO ER IF WORSE SAMANTHA DAO DO Feb 07, 2018 02:38
[2018-02-07 03:31] LABS: BASOPHILS % (AUTO) 0 % (0-10); EOSINOPHILS # (AUTO) 0.3 10^3/uL (0.0-0.3); EOSINOPHILS % (AUTO) 3 % (0-10); HEMATOCRIT 44 % (40-54); HEMOGLOBIN 15.4 G/DL (13.3-17.7); LYMPHOCYTES # (AUTO) 1.5 X 10^3 (1.0-4.0); LYMPHOCYTES % (AUTO) 14 % (12-44); MEAN CORPUSCULAR HEMOGLOBIN 32 PG (25-34); MEAN CORPUSCULAR HGB CONC 35 G/DL (32-36); MEAN CORPUSCULAR VOLUME 90 FL (80-99); MEAN PLATELET VOLUME 10.2 FL (7.4-10.4); MONOCYTES % (AUTO) 9 % (0-12); NEUTROPHILS # (AUTO) 8.3 X 10^3 (1.8-7.8); NEUTROPHILS % (AUTO) 75 % (42-75); PLATELET COUNT 229 10^3/uL (130-400); RED BLOOD COUNT 4.86 10^6/uL (4.35-5.85); RED CELL DISTRIBUTION WIDTH 12.3 % (10.0-14.5); WHITE BLOOD COUNT 11.1 10^3/uL (4.3-11.0)
[2018-02-07 03:34] LABS: BILIRUBIN,URINE NEGATIVE (NEGATIVE); CLARITY,URINE CLEAR; COLOR,URINE YELLOW; GLUCOSE, URINE (UA) NEGATIVE (NEGATIVE); KETONES,URINE NEGATIVE (NEGATIVE); LEUKOCYTE ESTERASE ,URINE NEGATIVE (NEGATIVE); NITRITE,URINE NEGATIVE (NEGATIVE); PH,URINE 6 (5-9); PROTEIN,URINE 1+ (NEGATIVE); UROBILINOGEN,URINE NORMAL (NORMAL)
[2018-02-07 03:51] LABS: BACTERIA,URINE NEGATIVE /HPF; SQUAMOUS EPITHELIAL CELL,UR RARE /HPF
[2018-02-07 03:51] LABS: INR 0.9 (0.8-1.4); PROTHROMBIN TIME PATIENT 12.2 SEC (12.2-14.7)
[2018-02-07 04:02] LABS: ALANINE AMINOTRANSFERASE 35 U/L (0-55); ALBUMIN 4.5 GM/DL (3.2-4.5); ALKALINE PHOSPHATASE 56 U/L (40-136); BILIRUBIN,TOTAL 0.6 MG/DL (0.1-1.0); BUN/CREATININE RATIO 17; CALCIUM 9.2 MG/DL (8.5-10.1); CARBON DIOXIDE 19 MMOL/L (21-32); CHLORIDE 103 MMOL/L (98-107); CREATININE SERUM 0.86 MG/DL (0.60-1.30); GFR ESTIMATED > 60; GLUCOSE 91 MG/DL (70-105); MAGNESIUM 2.6 MG/DL (1.8-2.4); POTASSIUM 3.7 MMOL/L (3.6-5.0); SODIUM 137 MMOL/L (135-145); TOTAL PROTEIN 6.8 GM/DL (6.4-8.2)
[2018-02-07 04:10] LABS: AMPHETAMINE SCREEN, URINE NEGATIVE (NEGATIVE); BARBITURATE SCREEN URINE NEGATIVE (NEGATIVE); BENZODIAZEPINES SCREEN URINE NEGATIVE (NEGATIVE); CANNABINOID SCREEN, URINE NEGATIVE (NEGATIVE); COCAINE SCREEN URINE NEGATIVE (NEGATIVE); METHADONE STAT NEGATIVE (NEGATIVE); METHAMPHETAMINE SCREEN URINE S NEGATIVE (NEGATIVE); OPIATE SCREEN URINE NEGATIVE (NEGATIVE); OXYCODONE STAT NEGATIVE (NEGATIVE); PROPOXYPHENE STAT NEGATIVE (NEGATIVE); TRICYCLIC ANTIDEPRESSANTS SCRE NEGATIVE (NEGATIVE)
[2018-02-07] MEDS ORDERED: RX-ONDANSETRON 4 MG ODT (ZOFRAN) PPK #4 PO STA (04:11)
[2018-02-07] MEDS ORDERED: ACETAMINOPHEN 500 MG TAB (TYLENOL) PO ONE (04:15)
[2018-02-07 04:26] LABS: TSH (THYROID ANALYZER) 2.14 UIU/ML (0.35-4.94)
[2018-02-07 04:51] VITALS: BP 139/77
--- NOTE | 2018-02-07 07:52 | Diagnostic Imaging Report ---
INDICATION: Dyspnea. PA and lateral views of the chest are obtained. COMPARISON: No previous study is available for comparison at this time. FINDINGS: Heart size and pulmonary vasculature are within normal limits, and the lungs are clear, bilaterally. IMPRESSION: Unremarkable chest. Dictated by: Dictated on workstation # [id number]
== END 2018-02-07 04:55 | disposition home or self-care (01) ==
LOC: EDUNIT# 01:58 → ER 02:00
DX: F41.9 Anxiety disorder, unspecified (principal); T45.0X5A Adverse effect of antiallergic and antiemetic drugs, initial encounter; E78.00 Pure hypercholesterolemia, unspecified; I10 Essential (primary) hypertension; F12.10 Cannabis abuse, uncomplicated; Z87.891 Personal history of nicotine dependence
CPT/HCPCS: 36415; 71046; 80053; 80306; 80320; 81000; 83735; 84443; 84484; 85025; 85610; 85730; 93005; 93041

== ENCOUNTER 2020-01-26 05:42 | Outpatient (RCR) | payer BC ==
[~2020-01-26] VITALS: Ht 160 cm; Wt 63.6 kg
[~2020-01-26 05:42] MED LIST changes: +LISI10TA2 PO; +PRAV40TA2 PO
[2020-01-28] MEDS ORDERED: HYDR-4226 PO (09:40)
== END 2020-01-26 11:07 | disposition home or self-care (01) ==
LOC: PREOP 05:42
PROVIDERS: ATTEND Surgery
DX: Z01.812 Encounter for preprocedural laboratory examination (principal); Z20.828 Contact with and (suspected) exposure to other viral communicable diseases
CPT/HCPCS: 87635

== ENCOUNTER 2020-01-28 20:31 | Emergency (ER) | payer BC ==
[~2020-01-28] VITALS: Ht 160 cm; Wt 63.5 kg
[~2020-01-28 20:31] MED LIST changes: +HYDR-4226 PO
[2020-01-28] MEDS ORDERED: LORazepam 0.5 MG (ATIVAN) TABLET PO STA (20:51)
[2020-01-28] MEDS ORDERED: RX-TRAMADOL 50 MG (ULTRAM) TAB PPK#4 PO STA (20:53)
--- NOTE | 2020-01-28 21:01 | ED General ---
General Chief Complaint: General Problems/Pain Stated Complaint: MEDICATION REACTION Nursing Triage Note: C/O FEELING ANXIOUS AFTER TAKING ONE HYDROCODONE HE WAS GIVEN FOR A GALLBLADDER SURGERY EARLIER TODAY. STATES "ROSE MARY BEEN PACING THE FLOOR FOR ABOUT AN HOUR NOW AND CAME IN TO SEE IF THERE IS SOMETHING TO COUNTER ACT THE HYDRO BECAUSE IT IS MAKING ME SO ANXIOUS" Nursing Sepsis Screen: No Definite Risk History of Present Illness Date Seen by Provider: Jan 28, 2020 Time Seen by Provider: 20:40 Initial Comments 54-year-old male presents for anxiety after taking hydrocodone 3 hours ago for postoperative pain. The patient had a cholecystectomy earlier today. He has had a similar reaction to hydrocodone in the past. Denies any SOA, difficulty swallowing, feeling that his tongue or lips are swollen, rash or other allergic symptoms. Timing/Duration: 1-3 Hours Severity: Mild Associated Systoms: Denies Symptoms Allergies and Home Medications Allergies Coded Allergies: hydrocodone (Verified Adverse Reaction, Unknown, 01/28/20) Home Medications Lisinopril 10 Mg Tablet, 10 MG PO DAILY, (Reported) Pravastatin Sodium 40 Mg Tablet, 40 MG PO DAILY, (Reported) Patient Home Medication List Home Medication List Reviewed: Yes Review of Systems Review of Systems Constitutional: no symptoms reported, see HPI Psychiatric/Neurological: See HPI, Anxiety All Other Systems Reviewed Negative Unless Noted: Yes Past Vnasode-Dfoohx-Athami Hx Past Med/Social Hx: Reviewed Nursing Past Med/Soc Hx Patient Social History Alcohol Use: Occasionally Uses Recreational Drug Use: No Type Used: Cigarettes Former Smoker, Quit: Jan 21, 1986 2nd Hand Smoke Exposure: Yes Recent Foreign Travel: No Contact w/Someone Who Travel: No Recent Infectious Disease Expo: No Recent Hopitalizations: No Physical Abuse: No Sexual Abuse: No Mistreated: No Fear: No Immunizations Up To Date Date of Influenza Vaccine: Mar 03, 2019 Seasonal Allergies Seasonal Allergies: Yes Past Medical History Surgeries: Yes (LEFT EYE REMOVED WITH PROSTHESIS, SHOULDER) Eye Surgery, Gallbladder Respiratory: No Currently Using CPAP: No Currently Using BIPAP: No Cardiac: Yes High Cholesterol, Hypertension Neurological: No Sexually Transmitted Disease: No HIV/AIDS: No Genitourinary: No Gastrointestinal: Yes Gastroesophageal Reflux, Gall Bladder Disease Musculoskeletal: No Endocrine: No 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 oz. 111.305925tl; 24.00 BMI Method:Stated General Appearance: WD/WN, Anxious Eyes: Bilateral Eye Normal Inspection, Bilateral Eye PERRL, Bilateral Eye EOMI HEENT: PERRL/EOMI, TMs Normal, Normal ENT Inspection, Pharynx Normal Neck: Full Range of Motion, Normal Inspection, Non Tender, Supple Respiratory: Chest Non Tender, Lungs Clear, Normal Breath Sounds Cardiovascular: Regular Rate, Rhythm, No Murmur, Normal Peripheral Pulses, Tachycardia (90-110) Gastrointestinal: Normal Bowel Sounds, Non Tender, Soft Neurologic/Psychiatric: Alert, Oriented x3, No Motor/Sensory Deficits, Normal Mood/Affect Skin: Normal Color, Warm/Dry; No Rash Progress/Results/Core Measures Suspected Sepsis Recent Fever Within 48 Hours: No Infection Criteria Present: None New/Unexplained Altered Menta: No Sepsis Screen: No Definite Risk SIRS Temperature: Pulse: 114 Respiratory Rate: 20 Blood Pressure 181 /110 Mean: 133 Results/Orders My Orders Orders - JAMARCUS MEJIA Lorazepam Tablet (Ativan Tablet) (01/28/20 20:51) Rx-Tramadol Hcl (Rx-Ultram) (01/28/20 20:53) Vital Signs/I&O 01/28/20 20:34 Temp 37.4 Pulse 114 Resp 20 B/P (MAP) 181/110 (133) Pulse Ox 96 Capillary Refill : Less Than 3 Seconds Blood Pressure Mean: 133 Progress Note : Time: 20:40 Progress Note Patient seen and evaluated, will give Ativan 1 mg by mouth and reevaluate. 2104 patient reports to have improvement in his symptoms. Pulse 80-95. B/P remains elevated 160/100. Patient on Lisonopril, did not take his dose tonight. 2129 B/P slightly improved 150/90, HR 80s. Complete relief of anxiety and no pain. Discharge instructions and return precautions reviewed. All questions a nswered. Departure Impression Primary Impression: Adverse reaction to drug Qualified Codes: T50.905A - Adverse effect of unspecified drugs, medicaments and biological substances, initial encounter Additional Impression: Hypertension Qualified Codes: I10 - Essential (primary) hypertension Disposition: 01 HOME, SELF-CARE Condition: Improved Departure-Patient Inst. Decision time for Depature: 21:20 Referrals: TATIANNA LA MD (PCP) Primary Care Physician [facility]/ (Family) Primary Care Physician ISABEL WYLIE DO Patient Instructions: Adverse Drug Reactions, Adult (DC), High Blood Pressure (DC) Add. Discharge Instructions: Discontinue taking the hydrocodone pain medicine. Try alternating with Tylenol 650 mg and ibuprofen 600 mg for pain. Use the tramadol every 6-8 hours as needed for more severe pain. Take your blood pressure medicine as soon as you get home. Return to emergency dept for new, urgent health care needs. All discharge instructions reviewed with patient and/or family. Voiced understanding. Copy Copies To 1: ISABEL WYLIE DO JAMARCUS MEJIA Jan 28, 2020 21:01
[2020-01-28] MEDS ORDERED: LISI10TA2 PO (21:28)
[2020-01-28 21:37] VITALS: BP 181/107
== END 2020-01-28 21:42 | disposition home or self-care (01) ==
LOC: EDUNIT# 20:31 → ER 20:33
DX: F41.9 Anxiety disorder, unspecified (principal); T40.2X5A Adverse effect of other opioids, initial encounter; E78.00 Pure hypercholesterolemia, unspecified; I10 Essential (primary) hypertension; Z88.5 Allergy status to narcotic agent; Z87.891 Personal history of nicotine dependence; Z90.49 Acquired absence of other specified parts of digestive tract; Z20.828 Contact with and (suspected) exposure to other viral communicable diseases
CPT/HCPCS: 99283

== ENCOUNTER 2020-07-22 05:30 | Outpatient (RCR) | payer BC ==
[~2020-07-22] VITALS: Ht 160 cm; Wt 65.9 kg
[~2020-07-22 05:30] MED LIST changes: -LISI10TA2 PO; +LISI10TA25 PO
== END 2020-07-22 13:03 | disposition home or self-care (01) ==
LOC: PREOP 05:30
PROVIDERS: ATTEND Surgery
DX: Z01.818 Encounter for other preprocedural examination (principal)

== ENCOUNTER 2020-10-04 05:41 | Outpatient (CLI) | payer BC ==
[~2020-10-04] VITALS: Ht 160 cm; Wt 70.3 kg
== END 2020-10-05 11:59 | disposition home or self-care (01) ==
LOC: PREOP 05:41
PROVIDERS: ATTEND Surgery
DX: Z01.818 Encounter for other preprocedural examination (principal)

== ENCOUNTER 2020-10-11 10:26 | Day surgery (SDC) | payer BC ==
[~2020-10-11] VITALS: Ht 160 cm; Wt 70.3 kg
[~2020-10-11 10:26] MED LIST changes: +LACTATED RINGERS 1,000 ML IV ONE
[2020-10-11] MEDS ORDERED: LACTATED RINGERS 1,000 ML IV STA (10:38)
[2020-10-11 10:40] VITALS: BP 157/93
[2020-10-11] MEDS ORDERED: PROPOFOL INJECTION 50 ML IV ONE (12:07)
[2020-10-11] MEDS ORDERED: MIDAZOLAM 2 MG/2 ML (VERSED) VIAL ONE (12:07)
[2020-10-11 12:40] VITALS: BP 113/55
--- NOTE | 2020-10-11 12:40 | Progress Note-Post Operative ---
Post-Operative Progess Note Surgeon (s)/Show Card Letterer (s) Surgeon ISABEL WYLIE DO Show Card Letterer: none Pre-Operative Diagnosis screening colon Post-Operative Diagnosis Colonic Ulcer int hemorrhoids Procedure & Operative Findings Date of Procedure 10/11/20 Procedure Performed/Findings After informed consent was obtained, the patient was brought to the endoscopy suite, placed in bed in left lateral decubitus position. He was administered IV sedation by the ENVIRONMENTAL ANALYST who then monitored him vitals the entire time, heart rate, blood pressure and pulse ox, started the colonoscopy. Pushed all the way to the cecum about 150 cm in, took a picture of the appendiceal orifice and noted the ileo-cecal valve. On the back of the ileo-cecal valve noted a large ulcer, took a picture and then did hot biopsies (three) to make sure I got a good specimen. Then slowly withdrew the scope insufflating to look circumferentially at the odom looking at the cecum, up the ascending colon to the hepatic flex ure, down the transverse colon, to the splenic flexure, into the descending colon down into the sigmoid and finally into the rectum, retroflexed in the rectal vault, saw some minimal internal hemorrhoids and took a picture.Then removed the scope. The patient tolerated the procedure. He was recovered in endoscopy suite. Anesthesia Type IV sedation by ENVIRONMENTAL ANALYST Estimated Blood Loss Estimated blood loss (mL): scant Specimens/Packing Specimens Removed bx of ulcer at IC valve ISABEL WYLIE DO October 11, 2020 12:39
--- NOTE | 2020-10-11 12:40 | Endoscopy Discharge Instruct ---
Endo Procedure/Findings Findings 1.: Other Findings (colonic ulcer) 2.: Internal Hemorrhoids Discharge Instructions - Activity: You might feel a little sleepy until tomorrow. This is due to the medicine you received to relax you. Until tomorrow, you should: NOT drive a car, operate machinery or power tools. NOT drink any alcoholic beverages. NOT make any important decisions or sign importortant papers. Do not return to work until tomorrow, unless otherwise instructed. Resume previous activities tomorrow. Diet: Start by taking liquids. If you tolerate liquids, advance to solid food. 1.: Colonoscopy in 1 year Notify Physician - If you experience excessive bleeding, unusual abdominal pain, fever, or chest pain, contact your doctor immediately. ISABEL WYLIE DO October 11, 2020 12:40
[2020-10-11 12:45] VITALS: BP 124/64
[2020-10-11 13:20] VITALS: BP 116/91
[2020-10-11 13:39] VITALS: BP 144/82
--- NOTE | 2020-10-11 13:40 | Anesthesia-General Post-Op ---
MAC Patient Condition Mental Status/LOC: Same as Preop Cardiovascular: Satisfactory Nausea/Vomiting: Absent Respiratory: Satisfactory Pain: Controlled Complications: Absent Post Op Complications Complications None Follow Up Care/Instructions Patient Instructions None needed. Anesthesiology Discharge Order Discharge Order Patient is doing well, no complaints, stable vital signs, no apparent adverse anesthesia problems. No complications reported per nursing. ENEDELIA JOHNSON CRNA October 11, 2020 13:40
== END 2020-10-11 13:25 | disposition home or self-care (01) ==
LOC: ENDO 10:26
PROVIDERS: ATTEND Surgery
DX: Z12.11 Encounter for screening for malignant neoplasm of colon (principal); K64.8 Other hemorrhoids; K63.3 Ulcer of intestine; I10 Essential (primary) hypertension; Z79.899 Other long term (current) drug therapy

== ENCOUNTER → 2020-11-10 | Outpatient (CLI) | payer BC ==
[~2020-11-10] VITALS: Ht 160 cm; Wt 63.6 kg
[~2020-11-10] MED LIST changes: +GADOBUTROL 7.5 MMOL/7.5 ML (GADAVIST) VIAL IV ONE; +IOHEXOL 300 MG/ML 50 ML (OMNIPAQUE 300) VIAL IV ONE; -LACTATED RINGERS 1,000 ML IV ONE
--- NOTE | 2020-11-10 17:39 | Diagnostic Imaging Report ---
INDICATION: Right shoulder pain. Patient was brought to the procedure room and placed on table in the supine position. Right shoulder was prepped and draped in usual sterile fashion. Small amount of 1% lidocaine was utilized for local anesthesia. A 22-gauge needle was advanced into the right shoulder at the rotator interval. A 15 mL solution of iodinated contrast, normal saline and gadolinium was injected under fluoroscopic observation. Needle was withdrawn and hemostasis was obtained. Patient tolerated the procedure well and was sent to MRI in satisfactory condition. Total of 14 seconds of fluoroscopic time was utilized. IMPRESSION: Successful right shoulder injection of gadolinium contrast solution, using fluoroscopy. Dictated by: Dictated on workstation # [id number]
--- NOTE | 2020-11-10 20:33 | Diagnostic Imaging Report ---
EXAMINATION: Magnetic resonance imaging of the right shoulder with intra-articular contrast. DATE: November 10, 2020. COMPARISON: Right shoulder arthrogram February 10, 2021. HISTORY: 55-year-old male, history of prior labral tear. Evaluation for recurrent labral tear. Right shoulder pain. TECHNIQUE: Magnetic Resonance Imaging sequences were performed of the shoulder following the intra-articular administration of contrast. FINDINGS: ROTATOR CUFF, LIGAMENTS, TENDONS, AND MUSCLES: The supraspinatus, infraspinatus, and teres minor tendons are intact. There is no clear tear of the subscapularis tendon. Evaluation of the subscapularis tendon is limited relating to adjacent artifact. There is partial fatty atrophy involving the subscapularis muscle. Additional intramuscular signal and muscle bulk is unremarkable. LONG HEAD OF BICEPS: The proximal long head of the biceps tendon is normally positioned in the bicipital groove. The intra-articular segment is not fully evaluated all the way to its biceps labral attachment given adjacent hardware related artifact. GLENOHUMERAL JOINT: The humeral head does appear to be normally positioned relative to the glenoid. Labral evaluation is substantially limited given prominent artifact. There is essentially nondiagnostic evaluation of the superior labrum and anterior labrum. The posterior labrum is grossly intact. There is no visualized paralabral cyst. There is no clearly identified cartilage defect on limited cartilage evaluation of the glenohumeral joint. There is no identified intra-articular body or prominent synovitis. ACROMIOCLAVICULAR JOINT: The acromioclavicular joint is normally aligned. The coracoclavicular and coracoacromial ligaments are intact. There are no degenerative changes of the acromioclavicular joint. BONE: There is no os acromiale. There is no acute fracture, bone contusion or evidence of osteonecrosis. There is no identified Hill-Sachs deformity. BURSAE AND SOFT TISSUES: There is fluid in the subacromial subdeltoid bursa. IMPRESSION: 1. Substantial artifact likely relating to hardware in the superior glenoid. This substantially limits labral evaluation in the superior labrum and anterior labrum in particular. The posterior labrum is grossly intact. 2. Limited evaluation of the biceps labral attachment and intra-articular segment of the proximal long head of the biceps tendon with normally positioned proximal long head of the biceps tendon in the bicipital groove. 3. No definite discrete rotator cuff tendon tear. There are areas of partial fatty atrophy of the subscapularis muscle. Additional intramuscular signal and muscle bulk is unremarkable. 4. Intact acromioclavicular joint. 5. No acute fracture, bone contusion or evidence of osteonecrosis. 6. Fluid in the subacromial subdeltoid bursa which could relate to bursitis and/or recent injection. Dictated by: Dictated on workstation # [id number]
== END ==
LOC: RAD 14:00
PROVIDERS: ATTEND Orthopaedic Surgery
DX: S43.431A Superior glenoid labrum lesion of right shoulder, initial encounter (principal); X58.XXXA Exposure to other specified factors, initial encounter
CPT/HCPCS: 23350; 73040; 73222

== ENCOUNTER 2021-01-27 05:34 | Outpatient (CLI) | payer BC ==
[~2021-01-27] VITALS: Ht 160 cm; Wt 63.6 kg
[~2021-01-27 05:34] MED LIST changes: -GADOBUTROL 7.5 MMOL/7.5 ML (GADAVIST) VIAL IV ONE; -IOHEXOL 300 MG/ML 50 ML (OMNIPAQUE 300) VIAL IV ONE
[2021-01-28] MEDS ORDERED: DICL75TA2 PO (15:21)
== END 2021-01-28 15:43 ==
LOC: PREOP 05:34
PROVIDERS: ATTEND Surgery
DX: Z01.818 Encounter for other preprocedural examination (principal)

== ENCOUNTER 2021-02-04 09:25 | Day surgery (SDC) | payer BC ==
[2021-02-04] VITALS (8 sets, daily range): BP systolic 105–132; BP diastolic 56–87
[~2021-02-04] VITALS: Ht 160 cm; Wt 63.6 kg
[~2021-02-04 09:25] MED LIST changes: +DICL75TA2 PO
--- OUTSIDE RECORDS SUMMARY | 2021-02-04 09:28 | XMS REPORT | Clinical Summary ---
Author Author [facility] Organization [facility] Address Unknown Phone Unavailable Care Team Providers Care Gis Programmer Name Role Phone PCP Unavailable Allergies Not on File Medications Not on file Active Problems Not on file Social History Date Tobacco Use Types Packs/Day Years Used Never Assessed Sex Assigned at Date Recorded Not on file Last Filed Vital Signs Not on file Plan of Treatment Not on file Results Not on filefrom Last 3 Months
[2021-02-04] MEDS ORDERED: LACTATED RINGERS 1,000 ML IV STA (09:37)
[2021-02-04] MEDS ORDERED: LACTATED RINGERS 1,000 ML IV ONE (09:39)
--- NOTE | 2021-02-04 11:23 | Progress Note-Pre Operative ---
Pre-Operative Progress Note H&P Reviewed The H&P was reviewed, patient examined and no changes noted. Time Seen by Provider: 11:20 Date H&P Reviewed: Feb 04, 2021 Time H&P Reviewed: 11:20 Pre-Operative Diagnosis: Colonic Ulcer ISABEL WYLIE DO Feb 04, 2021 11:23
[2021-02-04] MEDS ORDERED: PROPOFOL INJECTION 50 ML IV ONE (11:28)
--- NOTE | 2021-02-04 12:17 | Progress Note-Post Operative ---
Post-Operative Progess Note Surgeon (s)/Dealer Card Room (s) Surgeon ISABEL WYLIE DO Dealer Card Room: [facility] Pre-Operative Diagnosis colonic ulcer Post-Operative Diagnosis resolution of ulcer, normal colon int hemorrhoids Procedure & Operative Findings Date of Procedure 02/04/21 Procedure Performed/Findings Colonoscopy PROCEDURE NOTE: After informed consent was obtained, the patient was brought to the endoscopy suite, placed in bed in left lateral decubitus position. He was administered IV sedation by the FUEL QUALITY TECH who then monitored vitals the entire time, heart rate, blood pressure and pulse ox and the scope was inserted pushed all the way in to about 140 cm to get all the way to cecum, took a picture of the appendiceal orifice, noted the ileocecal valve. Did not see any ulcer....questionable signs of healing. Next slowly withdrew the scope, insufflating to look circumferentiallly at the odom starting in the cecum, up the ascending colon to the hepatic flexure, then down the transverse colon, splenic flexure, into the descending colon, down into the sigmoid and finally into the rectum and saw some minimal internal hemorrhoids as I withdrew the scope and took a picture of this. The patient tolerated the procedure and he recovered in the endoscopy suite. Anesthesia Type IV sedation by FUEL QUALITY TECH Estimated Blood Loss Estimated blood loss (mL): none Specimens/Packing Specimens Removed none ISABEL WYLIE DO Feb 04, 2021 12:17
--- NOTE | 2021-02-04 12:18 | Endoscopy Discharge Instruct ---
Endo Procedure/Findings Findings 1.: Internal Hemorrhoids Discharge Instructions - Activity: You might feel a little sleepy until tomorrow. This is due to the me dicine you received to relax you. Until tomorrow, you should: NOT drive a car, operate machinery or power tools. NOT drink any alcoholic beverages. NOT make any important decisions or sign importortant papers. Do not return to work until tomorrow, unless otherwise instructed. Resume previous activities tomorrow. Diet: Start by taking liquids. If you tolerate liquids, advance to solid food. 1.: Colonscopy in 10 years Notify Physician - If you experience excessive bleeding, unusual abdominal pain, fever, or chest pain, contact your doctor immediately. ISABEL WYLIE DO Feb 04, 2021 12:18
--- NOTE | 2021-02-04 12:45 | Anesthesia-General Post-Op ---
MAC Patient Condition Mental Status/LOC: Same as Preop Cardiovascular: Satisfactory Nausea/Vomiting: Absent Respiratory: Satisfactory Pain: Controlled Complications: Absent Post Op Complications Complications None Follow Up Care/Instructions Patient Instructions None needed. Anesthesiology Discharge Order Discharge Order Patient is doing well, no complaints, stable vital signs, no apparent adverse anesthesia problems. No complications reported per nursing. BENI ACEVES CRNA Feb 04, 2021 12:45
== END 2021-02-04 13:00 | disposition home or self-care (01) ==
LOC: ENDO 09:25
PROVIDERS: ATTEND Surgery
DX: K63.3 Ulcer of intestine (principal); K64.8 Other hemorrhoids; K21.9 Gastro-esophageal reflux disease without esophagitis; I10 Essential (primary) hypertension; E78.5 Hyperlipidemia, unspecified; Z79.899 Other long term (current) drug therapy; Z79.891 Long term (current) use of opiate analgesic; Z90.49 Acquired absence of other specified parts of digestive tract; Z80.9 Family history of malignant neoplasm, unspecified